=== PATIENT | male | born 1980 | race Asian ===

== ENCOUNTER 2017-09-26 16:48 | Emergency (ER) | payer MEDICAID ==
[~2017-09-26] VITALS: Ht 165.1 cm; Wt 77.6 kg
[~2017-09-26 16:48] MED LIST: ASPI-621 PO; CARV3.122 PO; FURO-92 PO; LEVO750T26 PO; LISI5TAB7 PO; METR500T PO; PANT40TA5 PO; PRED20TA PO; SPIR25TA3 PO
[2017-09-26 16:49] VITALS: BP 148/97
[2017-09-26] MEDS ORDERED: ASPIRIN 81 MG TABLET CHEW PO ONE (17:00)
[2017-09-26] MEDS ORDERED: SODIUM CHLORIDE 0.9% 1,000ML IVBOLUS ONE (17:00)
[2017-09-26] MEDS ORDERED: SODIUM CHLORIDE FLUSH 10ML SYR IVF ONE (17:00)
== END 2017-09-26 18:24 | disposition left against medical advice (07) ==
LOC: ED 18:18
DX: M25.562 Pain in left knee (principal); R07.9 Chest pain, unspecified; I42.9 Cardiomyopathy, unspecified
CPT/HCPCS: 71046; 93005; 99284

== ENCOUNTER 2018-11-24 19:46 | Inpatient (IN) | payer MEDICAID ==
[~2018-11-24] VITALS: Ht 165.1 cm; Wt 83.3 kg
[~2018-11-24 19:46] MED LIST changes: -ASPI-621 PO; +ASPI81TA45 PO; +CARV6.252 PO; -SPIR25TA3 PO; +SPIR25TA5 PO
[2018-11-24] MEDS ORDERED: ACETAMINOPHEN 325 MG TABLET PO ONE (20:00)
[2018-11-24] MEDS ORDERED: ACETAMINOPHEN 325 MG TABLET ONE (20:02)
--- NOTE | 2018-11-24 20:06 | NUR ---
PT. TO ED WITH C/O COUGH FOR A FEW DAYS. PT. WAS ADMITTED TO HOSPITAL A COUPLE DAYS AGO AND HAD TO LEAVE AMA FOR HIS CHILDREN. PT. HERE "TO BE ADMITTED AGAIN". PT. SPEAKING IN FULL SENTENCES. DR. HINOJOSA AT TO EVAL PT. AND DISCUSS POC. EKG WAS DONE IN TRIAGE. CHEST X-RAY DONE. CALL LIGHT IN REACH. ALL MONITORS IN PLACE.
[2018-11-24 20:39] LABS: MEAN CORPUSCULAR HGB CONC 32.7 g/dL (33.2-36.2); MEAN CORPUSCULAR VOLUME 85.7 fL (81-97); PLATELET COUNT 357 x10^3/uL (130-400); RED BLOOD COUNT 4.49 x10^6/uL (4.38-5.82); RED CELL DISTRIBUTION WIDTH 14.3 % (9.4-14.8)
[2018-11-24 20:48] LABS: ALBUMIN 3.5 g/dL (3.4-5.0); ANION GAP 9 mmol/L (5-15); CALCIUM 8.7 mg/dL (8.5-10.1); CHLORIDE 108 mmol/L (98-107); CREATININE 1.49 mg/dL (0.7-1.3)
[2018-11-24 20:51] LABS: TROPONIN I 0.071 ng/mL (0.000-0.045)
[2018-11-24 20:53] LABS: BASOPHILS # (AUTO) 0.05 x10^3/uL (0-0.1); BASOPHILS % (AUTO) 0 % (0-1); EOSINOPHILS # (AUTO) 0.03 x10^3/uL (0-0.4); EOSINOPHILS % (AUTO) 0 % (1-7); LYMPHOCYTES # (AUTO) 2.59 x10^3/uL (1-3.4); LYMPHOCYTES % (AUTO) 24 % (22-44); MD SCAN; MONOCYTES # (AUTO) 0.71 x10^3/uL (0.2-0.8); MONOCYTES % (AUTO) 7 % (2-9); NEUTROPHILS # (AUTO) 7.29 x10^3/uL (1.8-6.8); NEUTROPHILS % (AUTO) 68 % (42-75)
[2018-11-24] MEDS ORDERED: AZITHROMYCIN 500 MG in SODIUM CHLORIDE 0.9% 250 ML IVPB ONE (21:00)
[2018-11-24] MEDS ORDERED: CEFTRIAXONE PMX 1GM/50ML 50 ML IVPB ONE (21:00)
[2018-11-24] MEDS ORDERED: CEFTRIAXONE PMX 1GM/50ML 50 ML ONE (21:16)
--- NOTE | 2018-11-24 21:26 | NUR ---
IV ABX INFUSING PER ORDER; 2 SETS OF BLOOD CULTURES WERE COMPLETED PRIOR. VS UPDATED. CALL LIGHT REMAINS IN REACH. PT. TO BE ADMIT; AWAITING ORDERS.
[2018-11-24] MEDS ORDERED: SODIUM CHLORIDE FLUSH 10ML SYR IVF PRN (22:00)
--- NOTE | 2018-11-24 22:10 | NUR ---
[facility] WAS IN TO EVAL PT. FOR ADMISSION. AWAITING BED PLACEMENT UPSTAIRS.
[2018-11-24] MEDS ORDERED: CARVEDILOL 3.125 MG TABLET ONE (22:38)
[2018-11-24] MEDS: CARVEDILOL 6.25 MG TABLET PO SCH (22:41)
--- NOTE | 2018-11-24 22:55 | NUR ---
Millie roche in ED - 11/24/18 at 2256 by ELISEO UPDATE GIVEN TO TELEPSYCH DOCTOR. MACHINE IN ROOM AND PHYSICIAN WILL BE CALLING TO SPEAK WITH PT.
[2018-11-24] MEDS ORDERED: CEFTRIAXONE PMX 1GM/50ML 50 ML IV ONE (23:00)
--- NOTE | 2018-11-24 23:13 | NUR ---
REPORT TO TOÑITO MARROQUIN FOR ROOM 514
[2018-11-24 23:16] LABS: HEMOGLOBIN A1C 6.6 % (4.2-6.3)
[2018-11-24] MEDS ORDERED: DIPHENHYDRAMINE 25 MG CAPSULE PO PRN (23:30)
[2018-11-24] MEDS ORDERED: hydrALAzine 20 MG/ML, 1ML IVPush PRN (23:30)
[2018-11-24] MEDS ORDERED: ACETAMINOPHEN 325 MG TABLET PO PRN (23:30)
[2018-11-24] MEDS ORDERED: BISACODYL 10 MG SUPP PR PRN (23:30)
[2018-11-24] MEDS ORDERED: LIDODERM 5% PATCH TD PRN (23:30)
[2018-11-24 23:43] VITALS: BP 112/82
[2018-11-25] MEDS ORDERED: LORazepam 2 MG/ML, 1ML IVPush PRN (00:30)
[2018-11-25] MEDS: ONDANSETRON 2MG/ML, 2ML IVPush PRN ×2 (00:51→21:36)
[2018-11-25 01:26] LABS: AMPHETAMINE SCREEN, URINE Positive (Negative); BARBITURATE SCREEN, URINE Negative (Negative); BENZODIAZEPINE SCREEN, URINE Negative (Negative); CANNABINOID SCREEN, URINE Negative (Negative); COCAINE SCREEN, URINE Negative (Negative); METHADONE SCREEN, URINE Negative (Negative); OPIATE SCREEN, URINE Negative (Negative)
[2018-11-25 02:44] LABS: BASOPHILS % (AUTO) 1 % (0-1); EOSINOPHILS % (AUTO) 0 % (1-7); LYMPHOCYTES # (AUTO) 1.19 x10^3/uL (1-3.4); LYMPHOCYTES % (AUTO) 12 % (22-44); MD NO; MEAN CORPUSCULAR VOLUME 85.3 fL (81-97); MEAN PLATELET VOLUME 7.5 fL (7.4-10.4); MONOCYTES # (AUTO) 0.68 x10^3/uL (0.2-0.8); MONOCYTES % (AUTO) 7 % (2-9); NEUTROPHILS # (AUTO) 7.69 x10^3/uL (1.8-6.8); NEUTROPHILS % (AUTO) 80 % (42-75); PLATELET COUNT 283 x10^3/uL (130-400); RED BLOOD COUNT 4.47 x10^6/uL (4.38-5.82); RED CELL DISTRIBUTION WIDTH 14.6 % (9.4-14.8)
[2018-11-25 02:52] LABS: ANION GAP 10 mmol/L (5-15); CHLORIDE 109 mmol/L (98-107); CREATININE 1.47 mg/dL (0.7-1.3)
[2018-11-25 02:56] LABS: TROPONIN I 0.094 ng/mL (0.000-0.045)
[2018-11-25 03:17] VITALS: BP 108/68
[2018-11-25] MEDS: HEPARIN 5,000 UNITS/ML, 1ML SQ SCH ×3 (06:33→21:07)
[2018-11-25 08:09] VITALS: BP 121/88
[2018-11-25 08:36] LABS: TROPONIN I 0.145 ng/mL (0.000-0.045)
[2018-11-25] MEDS ORDERED: FUROSEMIDE 40 MG TABLET PO SCH (09:00)
[2018-11-25] MEDS: CARVEDILOL 6.25 MG TABLET PO SCH ×2 (09:59→20:33)
[2018-11-25] MEDS: LISINOPRIL 5 MG TABLET PO SCH (09:59)
[2018-11-25] MEDS ORDERED: SODIUM CHLORIDE 0.9% 1,000 ML IV SCH (13:00)
[2018-11-25 14:04] VITALS: BP 101/71
[2018-11-25 14:08] LABS: TROPONIN I 0.138 ng/mL (0.000-0.045)
[2018-11-25 18:24] VITALS: BP 119/81
[2018-11-25 20:33] VITALS: BP 102/68
[2018-11-25] MEDS: CEFTRIAXONE PMX 2GM/50ML 50 ML IV SCH (20:33)
[2018-11-25] MEDS: AZITHROMYCIN 500 MG in SODIUM CHLORIDE 0.9% 250 ML IV SCH (21:08)
[2018-11-25] MEDS: LORazepam 1MG TABLET PO PRN (22:19)
[2018-11-26 02:46] VITALS: BP_SYST 106; BP_SYST 99; BP_DIAS 57; BP_DIAS 70
[2018-11-26] MEDS: HEPARIN 5,000 UNITS/ML, 1ML SQ SCH ×3 (05:52→20:49)
[2018-11-26 06:51] VITALS: BP 122/86
[2018-11-26] MEDS: CARVEDILOL 6.25 MG TABLET PO SCH ×2 (09:07→20:48)
[2018-11-26] MEDS: LISINOPRIL 5 MG TABLET PO SCH (09:07)
[2018-11-26 13:30] VITALS: BP 126/79
[2018-11-26 18:53] VITALS: BP 120/75
[2018-11-26] MEDS: CEFTRIAXONE PMX 2GM/50ML 50 ML IV SCH (20:47)
[2018-11-26] MEDS: AZITHROMYCIN 500 MG in SODIUM CHLORIDE 0.9% 250 ML IV SCH (20:48)
[2018-11-26] MEDS: ATORVASTATIN 40 MG TABLET PO SCH (21:08)
[2018-11-26 21:46] LABS: CHOL/HDL RATIO 4.1; LDL/HDL RATIO 2.6 (0.5-3.0)
[2018-11-26] MEDS: LORazepam 1MG TABLET PO PRN (23:17)
[2018-11-26 23:55] VITALS: BP 70/54
[2018-11-27] VITALS (7 sets, daily range): BP systolic 85–110; BP diastolic 56–75
[2018-11-27] MEDS ORDERED: SODIUM CHLORIDE 0.9% 1,000ML IVBOLUS ONE ×2 (00:30→01:00)
[2018-11-27] MEDS: SODIUM CHLORIDE 0.9% 1,000 ML IV SCH ×2 (02:53→09:40)
[2018-11-27] MEDS: ONDANSETRON 2MG/ML, 2ML IVPush PRN (02:53)
[2018-11-27] MEDS ORDERED: ASPIRIN 81 MG TABLET EC PO SCH (06:00)
[2018-11-27] MEDS: HEPARIN 5,000 UNITS/ML, 1ML SQ SCH ×3 (07:15→21:21)
[2018-11-27 07:56] LABS: TROPONIN I 0.257 ng/mL (0.000-0.045)
[2018-11-27] MEDS: CARVEDILOL 6.25 MG TABLET PO SCH ×2 (09:00→21:16)
[2018-11-27] MEDS: LISINOPRIL 5 MG TABLET PO SCH (09:00)
[2018-11-27 10:30] LABS: TROPONIN I 0.235 ng/mL (0.000-0.045)
[2018-11-27] MEDS: AZITHROMYCIN 500 MG in SODIUM CHLORIDE 0.9% 250 ML IV SCH (21:00)
[2018-11-27] MEDS: ATORVASTATIN 40 MG TABLET PO SCH (21:16)
[2018-11-27] MEDS: CEFTRIAXONE PMX 2GM/50ML 50 ML IV SCH (21:20)
[2018-11-28 00:49] VITALS: BP 104/71
[2018-11-28] MEDS: HEPARIN 5,000 UNITS/ML, 1ML SQ SCH (03:17)
== END 2018-11-28 03:58 | disposition left against medical advice (07) | DRG 871 ==
LOC: ED 20:46 → EDIP 21:33 → 5SO 23:38 → CCU 11-26 17:55 → 5SO 11-26 17:56
PROVIDERS: ADMIT Internal Medicine; ATTEND Internal Medicine
DX: A41.9 Sepsis, unspecified organism (principal); J15.9 Unspecified bacterial pneumonia; I13.0 Hypertensive heart and chronic kidney disease with heart failure and stage 1 through stage 4 chronic kidney disease, or unspecified chronic kidney disease; I24.8 Other forms of acute ischemic heart disease; I42.7 Cardiomyopathy due to drug and external agent; E11.22 Type 2 diabetes mellitus with diabetic chronic kidney disease; E11.65 Type 2 diabetes mellitus with hyperglycemia; F12.90 Cannabis use, unspecified, uncomplicated; F15.10 Other stimulant abuse, uncomplicated; F17.210 Nicotine dependence, cigarettes, uncomplicated; F41.9 Anxiety disorder, unspecified; I25.10 Atherosclerotic heart disease of native coronary artery without angina pectoris; I50.9 Heart failure, unspecified; K21.9 Gastro-esophageal reflux disease without esophagitis; N18.2 Chronic kidney disease, stage 2 (mild); T43.625A Adverse effect of amphetamines, initial encounter; Y92.89 Other specified places as the place of occurrence of the external cause; I25.2 Old myocardial infarction; Z87.11 Personal history of peptic ulcer disease; Z91.19 Patient's noncompliance with other medical treatment and regimen; Z71.51 Drug abuse counseling and surveillance of drug abuser
CPT/HCPCS: 36415; 71045; 80048; 80061; 80307; 82040; 83036; 83605; 83880; 84145; 84484; 85025; 87040; 93005; 96365; 96366; G0378; J0456; J0696; J1644; J2405; J7030; J7050

== ENCOUNTER 2019-02-20 04:58 | Inpatient (IN) | payer MEDICAID ==
[~2019-02-20] VITALS: Ht 165.1 cm; Wt 74.0 kg
[2019-02-20] MEDS ORDERED: NITROGLYCERIN SINGLE TAB 0.4 MG SL ONE (05:27)
[2019-02-20] MEDS ORDERED: ASPIRIN 81 MG TABLET CHEW ONE (05:27)
[2019-02-20] MEDS ORDERED: ASPIRIN 81 MG TABLET CHEW PO ONE (05:30)
[2019-02-20] MEDS ORDERED: SODIUM CHLORIDE FLUSH 10ML SYR IVF ONE (05:30)
[2019-02-20] MEDS: NITROGLYCERIN SINGLE TAB 0.4 MG SL PRN ×2 (05:35→05:41)
--- NOTE | 2019-02-20 05:35 | NUR ---
Pt placed on monitor, vss, NSR on monitor, c/o 6/10 subternal chest pain sharp/ pressure, denies SOB.SL nitro given, ASA given per MD orders, education provided. Family at bedside.
--- NOTE | 2019-02-20 05:42 | NUR ---
Pain not relieved with nitro 1st dose, repeated per MD orders. SBP 131/95, pain 6/10.
[2019-02-20 05:58] LABS: BASOPHILS % (AUTO) 2 % (0-1); EOSINOPHILS # (AUTO) 0.05 x10^3/uL (0-0.4); EOSINOPHILS % (AUTO) 1 % (1-7); LYMPHOCYTES % (AUTO) 25 % (22-44); MD NO; MEAN CORPUSCULAR HEMOGLOBIN 28.6 pg (27.5-34.5); MEAN CORPUSCULAR HGB CONC 32.5 g/dL (33.2-36.2); MEAN CORPUSCULAR VOLUME 88.1 fL (81-97); MEAN PLATELET VOLUME 7.7 fL (7.4-10.4); MONOCYTES # (AUTO) 0.79 x10^3/uL (0.2-0.8); MONOCYTES % (AUTO) 7 % (2-9); NEUTROPHILS # (AUTO) 7.34 x10^3/uL (1.8-6.8); NEUTROPHILS % (AUTO) 66 % (42-75); PLATELET COUNT 315 x10^3/uL (130-400); RED BLOOD COUNT 4.87 x10^6/uL (4.38-5.82); RED CELL DISTRIBUTION WIDTH 17.1 % (9.4-14.8)
[2019-02-20 06:04] LABS: INTERNATIONAL NORMALIZED RATIO 1.24 (0.93-1.1); PROTHROMBIN TIME 12.9 Seconds (9.6-11.5)
[2019-02-20 06:05] LABS: ALANINE AMINOTRANSFERASE 31 U/L (12-78); ALBUMIN 3.7 g/dL (3.4-5.0); ANION GAP 9 mmol/L (5-15); CALCIUM 8.6 mg/dL (8.5-10.1); CHLORIDE 108 mmol/L (98-107); CREATININE 1.46 mg/dL (0.7-1.3)
[2019-02-20 06:09] LABS: ALKALINE PHOSPHATASE 84 U/L (45-117); BILIRUBIN,TOTAL 0.8 mg/dL (0.2-1.0); TOTAL PROTEIN 8.2 g/dL (6.4-8.2); TROPONIN I 0.059 ng/mL (0.000-0.045)
--- NOTE | 2019-02-20 06:50 | NUR ---
PIV placed, taken to CT, report given to oncoming RN.
--- NOTE | 2019-02-20 06:51 | NUR ---
SBAR HAND-OFF REPORT RECEIVED FROM LOPEZ DAWSON. ASSUMING CARE OF PATIENT.
--- NOTE | 2019-02-20 06:51 | NUR ---
PT IN CT AT THIS TIME.
[2019-02-20] MEDS ORDERED: OMNIPAQUE 350 MG/ML, 100ML BOTTLE ONE (07:00)
[2019-02-20] MEDS ORDERED: ONDANSETRON 2MG/ML, 2ML ONE (07:15)
--- NOTE | 2019-02-20 07:18 | NUR ---
PT WAS C/O NAUSEA. DR. VYAS NOTIFIED. ZOFRAN ORDERED AND GIVEN.
[2019-02-20] MEDS ORDERED: SPIR25TA5 PO (07:30)
[2019-02-20] MEDS ORDERED: ONDANSETRON 2MG/ML, 2ML IVPush ONE (07:30)
--- NOTE | 2019-02-20 09:19 | NUR ---
PT RESTING WITH NO COMPLAINTS. UPDATED PATIENT ON PLAN OF CARE.
[2019-02-20] MEDS ORDERED: SODIUM CHLORIDE FLUSH 10ML SYR IVF PRN (09:30)
[2019-02-20] MEDS ORDERED: IBUPROFEN 200 MG TABLET ONE (10:05)
[2019-02-20] MEDS ORDERED: IBUPROFEN 600 MG TABLET PO ONE (10:30)
--- NOTE | 2019-02-20 10:43 | NUR ---
SBAR TELEPHONE HAND-OFF REPORT GIVEN TO LOPEZ DEL ANGEL ON TELE.
[2019-02-20 11:23] VITALS: BP 131/92
[2019-02-20] MEDS ORDERED: hydrALAzine 20 MG/ML, 1ML IVPush PRN (11:30)
[2019-02-20] MEDS ORDERED: CYCLOBENZAPRINE 10 MG TABLET PO PRN (11:30)
[2019-02-20] MEDS ORDERED: ACETAMINOPHEN 325 MG TABLET PO PRN (11:30)
[2019-02-20] MEDS ORDERED: ONDANSETRON 2MG/ML, 2ML IVPush PRN (11:30)
[2019-02-20] MEDS ORDERED: OXYcodone IR 5MG TABLET PO PRN (11:30)
[2019-02-20 12:43] LABS: TROPONIN I 0.049 ng/mL (0.000-0.045)
[2019-02-20] MEDS: POTASSIUM CHLORIDE 20 MEQ TAB.ER.PRT PO SCH ×2 (12:47→17:39)
[2019-02-20] MEDS: ENOXAPARIN 40 MG/0.4 ML SQ SCH (12:48)
[2019-02-20] MEDS: LISINOPRIL 5 MG TABLET PO SCH (12:48)
[2019-02-20] MEDS: SPIRONOLACTONE 25 MG TABLET PO SCH (12:48)
[2019-02-20] MEDS: CARVEDILOL 6.25 MG TABLET PO SCH ×2 (12:48→20:45)
[2019-02-20 13:30] VITALS: BP 128/96
[2019-02-20] MEDS: FUROSEMIDE 40 MG/4 ML IV SCH (17:39)
[2019-02-20 18:03] LABS: TROPONIN I 0.028 ng/mL (0.000-0.045)
[2019-02-20 18:59] VITALS: BP 116/90
[2019-02-20 20:02] LABS: MICROSCOPIC NOT IND
[2019-02-20] MEDS ORDERED: NITROGLYCERIN 0.4 MG/SPRAY SL PRN (22:30)
[2019-02-20] MEDS ORDERED: NITROGLYCERIN 0.4 MG BOTTLE (25 TABS) SL PRN (22:30)
[2019-02-21] VITALS (7 sets, daily range): BP systolic 105–123; BP diastolic 44–88
[2019-02-21 06:00] LABS: CHLORIDE 107 mmol/L (98-107)
[2019-02-21 06:04] LABS: ANION GAP 9 mmol/L (5-15); CALCIUM 8.1 mg/dL (8.5-10.1); CHOL/HDL RATIO 6.5; CHOLESTEROL, TOTAL 142 mg/dL (140-239); CREATININE 1.66 mg/dL (0.7-1.3); HDL CHOL % 15 % (26-37); HDL CHOLESTEROL (DIRECT) 22 mg/dL (40-60); LDL CHOLESTEROL,CALCULATED 78 mg/dL (54-169); LDL/HDL RATIO 3.5 (0.5-3.0); TRIGLYCERIDES 211 mg/dL (50-200); VLDL CHOLESTEROL 42 mg/dL (0-25)
[2019-02-21 06:05] LABS: BASOPHILS # (AUTO) 0.05 x10^3/uL (0-0.1); BASOPHILS % (AUTO) 1 % (0-1); EOSINOPHILS # (AUTO) 0.07 x10^3/uL (0-0.4); EOSINOPHILS % (AUTO) 1 % (1-7); LYMPHOCYTES # (AUTO) 3.59 x10^3/uL (1-3.4); LYMPHOCYTES % (AUTO) 35 % (22-44); MD NO; MEAN CORPUSCULAR HEMOGLOBIN 27.9 pg (27.5-34.5); MEAN PLATELET VOLUME 7.6 fL (7.4-10.4); MONOCYTES # (AUTO) 0.93 x10^3/uL (0.2-0.8); MONOCYTES % (AUTO) 9 % (2-9); NEUTROPHILS # (AUTO) 5.52 x10^3/uL (1.8-6.8); NEUTROPHILS % (AUTO) 54 % (42-75); PLATELET COUNT 255 x10^3/uL (130-400); RED BLOOD COUNT 4.33 x10^6/uL (4.38-5.82); RED CELL DISTRIBUTION WIDTH 16.9 % (9.4-14.8)
[2019-02-21] MEDS: SPIRONOLACTONE 25 MG TABLET PO SCH (09:28)
[2019-02-21] MEDS: CARVEDILOL 6.25 MG TABLET PO SCH ×2 (09:28→20:37)
[2019-02-21] MEDS: FUROSEMIDE 40 MG/4 ML IV SCH ×2 (09:29→17:11)
[2019-02-21] MEDS: LISINOPRIL 5 MG TABLET PO SCH (09:29)
[2019-02-21] MEDS: ENOXAPARIN 40 MG/0.4 ML SQ SCH (13:48)
[2019-02-22 02:37] VITALS: BP 108/65
[2019-02-22 06:35] VITALS: BP 122/90
[2019-02-22] MEDS: SPIRONOLACTONE 25 MG TABLET PO SCH (08:32)
[2019-02-22] MEDS: LISINOPRIL 5 MG TABLET PO SCH (08:33)
[2019-02-22] MEDS: CARVEDILOL 6.25 MG TABLET PO SCH (08:33)
[2019-02-22 10:27] LABS: ANION GAP 12 mmol/L (5-15); CALCIUM 8.6 mg/dL (8.5-10.1); CHLORIDE 103 mmol/L (98-107); CREATININE 1.61 mg/dL (0.7-1.3)
[2019-02-22] MEDS ORDERED: FUROSEMIDE 40 MG TABLET PO SCH (11:00)
[2019-02-22 12:01] VITALS: BP 108/74
[2019-02-22] MEDS: ENOXAPARIN 40 MG/0.4 ML SQ SCH (12:25)
[2019-02-22] MEDS ORDERED: NITR0.4T28 SL (13:31)
== END 2019-02-22 15:17 | disposition home health service (06) | DRG 292 ==
LOC: ED 05:50 → EDIP 09:03 → 5SO 10:54
PROVIDERS: ADMIT Family Medicine; ATTEND Family Medicine
DX: I11.0 Hypertensive heart disease with heart failure (principal); I24.8 Other forms of acute ischemic heart disease; E87.6 Hypokalemia; I50.23 Acute on chronic systolic (congestive) heart failure; I42.9 Cardiomyopathy, unspecified; F15.90 Other stimulant use, unspecified, uncomplicated; F12.90 Cannabis use, unspecified, uncomplicated; I25.10 Atherosclerotic heart disease of native coronary artery without angina pectoris; K21.9 Gastro-esophageal reflux disease without esophagitis; Z86.711 Personal history of pulmonary embolism; Z87.11 Personal history of peptic ulcer disease; Z87.891 Personal history of nicotine dependence
CPT/HCPCS: 36415; 71045; 71275; 80048; 80053; 80061; 81003; 83735; 83880; 84484; 85025; 85610; 85730; 93005; 96374; 99285; G0378; J1650; J1940; J2405; Q9967

== ENCOUNTER 2019-10-25 02:02 | Emergency (ER) | payer MEDICAID ==
[~2019-10-25] VITALS: Ht 162.6 cm; Wt 77.0 kg
[~2019-10-25 02:02] MED LIST changes: +NITR0.4T28 SL
[2019-10-25] MEDS ORDERED: SODIUM CHLORIDE FLUSH 10ML SYR IVF ONE (02:30)
[2019-10-25] MEDS ORDERED: MAALOX/HYOSCYAMINE/LIDOCAINE 45 ML BTL PO ONE (02:30)
[2019-10-25] MEDS ORDERED: ONDANSETRON 2MG/ML, 2ML IVPush ONE (02:30)
[2019-10-25] MEDS ORDERED: MAALOX/HYOSCYAMINE/LIDOCAINE 45 ML BTL ONE (02:55)
[2019-10-25 03:18] LABS: MICROSCOPIC INDICATED
[2019-10-25 03:18] LABS: ALANINE AMINOTRANSFERASE 55 U/L (12-78); ALBUMIN 3.7 g/dL (3.4-5.0); ANION GAP 9 mmol/L (5-15); CALCIUM 9.6 mg/dL (8.5-10.1); CHLORIDE 106 mmol/L (98-107); CREATININE 1.36 mg/dL (0.7-1.3)
[2019-10-25 03:19] LABS: BASOPHILS # (AUTO) 0.04 x10^3/uL (0-0.1); BASOPHILS % (AUTO) 0 % (0-1); EOSINOPHILS # (AUTO) 0.12 x10^3/uL (0-0.4); EOSINOPHILS % (AUTO) 1 % (1-7); LYMPHOCYTES # (AUTO) 1.71 x10^3/uL (1-3.4); LYMPHOCYTES % (AUTO) 15 % (22-44); MD NO; MEAN CORPUSCULAR HEMOGLOBIN 27.1 pg (27.5-34.5); MEAN CORPUSCULAR HGB CONC 32.5 g/dL (33.2-36.2); MEAN CORPUSCULAR VOLUME 83.5 fL (81-97); MEAN PLATELET VOLUME 7.8 fL (7.4-10.4); MONOCYTES # (AUTO) 0.25 x10^3/uL (0.2-0.8); MONOCYTES % (AUTO) 2 % (2-9); NEUTROPHILS # (AUTO) 9.57 x10^3/uL (1.8-6.8); NEUTROPHILS % (AUTO) 82 % (42-75); PLATELET COUNT 367 x10^3/uL (130-400); RED BLOOD COUNT 5.79 x10^6/uL (4.38-5.82); RED CELL DISTRIBUTION WIDTH 15.6 % (9.4-14.8)
[2019-10-25 03:20] LABS: ALKALINE PHOSPHATASE 99 U/L (45-117); BILIRUBIN,TOTAL 0.2 mg/dL (0.2-1.0); TOTAL PROTEIN 9.3 g/dL (6.4-8.2)
[2019-10-25 03:31] LABS: CULTURE INDICATED? NO
[2019-10-25 03:50] VITALS: BP 152/95
== END 2019-10-25 04:10 | disposition home or self-care (01) ==
LOC: ED 04:00
DX: K29.00 Acute gastritis without bleeding (principal); R10.13 Epigastric pain; I11.0 Hypertensive heart disease with heart failure; I50.9 Heart failure, unspecified
CPT/HCPCS: 36415; 80053; 81001; 83690; 85025; 93005; 99284

== ENCOUNTER 2020-06-04 05:49 | Inpatient (IN) | payer MEDICAID ==
[~2020-06-04] VITALS: Ht 165.1 cm; Wt 78.9 kg
[~2020-06-04 05:49] MED LIST changes: -PANT40TA5 PO; +PANT40TA6 PO
--- NOTE | 2020-06-04 05:57 | NUR ---
PT CURRENTLY BEING TREATED FOR BRONCHITIS WITH AMOX HE BELIEVES AND PREDNISONE, TAKES LABETOLOL AND LISINOPRIL, SPIRONOLACTONE DAILY. FELT DIZZY THIS AM AND LIKE HE WAS GOING TO PASS OUT. 12 LEAD OBTAINED UPON ARRIVAL, SPO2 100% RA IN TRIAGE.
--- NOTE | 2020-06-04 08:05 | NUR ---
early childhood specialist: PT WALKED BACK FROM LOBBY TO ROOM AT THIS TIME.
[2020-06-04 08:10] LABS: BASOPHILS % (AUTO) 1 % (0-1); EOSINOPHILS % (AUTO) 0 % (1-7); LYMPHOCYTES % (AUTO) 19 % (22-44); MEAN CORPUSCULAR HEMOGLOBIN 28.3 pg (27.5-34.5); MEAN CORPUSCULAR HGB CONC 32.6 g/dL (33.2-36.2); MEAN PLATELET VOLUME 7.8 fL (7.4-10.4); MONOCYTES % (AUTO) 6 % (2-9); NEUTROPHILS % (AUTO) 74 % (42-75); PLATELET COUNT 347 x10^3/uL (130-400); RED BLOOD COUNT 4.87 x10^6/uL (4.38-5.82); RED CELL DISTRIBUTION WIDTH 14.4 % (9.4-14.8)
[2020-06-04 08:17] LABS: MD NO
--- NOTE | 2020-06-04 08:21 | NUR ---
FIRST CONTACT. PT.'S BGL WAS CHECKED. OGI=823. PT. WAS PLACED ON THE WIRE ROPE SLING MAKER. IV ACCESS ESTABLISHED. PT. DENIES HX OF DM. STATES HIS HX IS CHF, SEPSIS, HTN AND AL. PT. REMAINS A & O X 4 WITH A GCS OF 15. PT. IS PINK, WARM AND DRY WITH CAP REFILL LESS THAN 3 SECONDS. LUNGS ARE CTA THROUGHOUT. PULSES ARE +2 WITH NO EDEMA NOTED IN THE PT.'S EXTREMITIES. PT.'S ABD. IS SOFT AND ROUND WITH BS + X 4 QUADS. PT. REPORTS DIZZINESS AND FREQUENT URINATION. PT. STATES HE IS ALWAYS THIRSTY. PT.'S HOB IS ELEVATED GREATER THAN 30 DEGREES AND HE HAS BLANKETS IN PLACE FOR WARMTH. SIDERAILS REMAIN UP X 2 WITH THE CALL LIGHT IN PLACE.
[2020-06-04 08:22] LABS: ALBUMIN 3.5 g/dL (3.4-5.0); ANION GAP 10 mmol/L (5-15); CALCIUM 8.5 mg/dL (8.5-10.1); CHLORIDE 102 mmol/L (98-107)
[2020-06-04] MEDS ORDERED: LORazepam 1MG TABLET PO ONE (08:30)
[2020-06-04] MEDS ORDERED: ONDANSETRON ODT 4 MG PO ONE (08:30)
[2020-06-04] MEDS ORDERED: SODIUM CHLORIDE 0.9% 1,000ML IVBOLUS ONE (08:30)
[2020-06-04 08:32] LABS: TROPONIN I 0.206 ng/mL (0.000-0.045)
[2020-06-04] MEDS ORDERED: ONDANSETRON ODT 4 MG ONE (08:34)
[2020-06-04] MEDS ORDERED: ASPIRIN 81 MG TABLET CHEW ONE (08:34)
--- NOTE | 2020-06-04 08:49 | NUR ---
MD MORGAN AT THE BEDSIDE AND AWARE OF PT.'S CRITICAL TROP LEVEL OF 0.2 WELL BGL. PT. REMAINS MONITORED AND DENIES CHEST PAIN. HE DENIES DIZZINESS AT THIS TIME. CHARLES MALDONADO INSTRUCTED RN TO NOT START A SECOND IV AT THIS TIME. PT.'S NS BOLUS IS INFUSING. VSS. PT.'S HOB REMAINS ELEVATED. PT. IS AWARE THAT A UA IS NEEDED. URINAL AT THE BEDSIDE.
[2020-06-04] MEDS ORDERED: ASPIRIN 81 MG TABLET CHEW PO ONE (09:00)
--- NOTE | 2020-06-04 09:05 | NUR ---
URINE TAKEN TO THE LAB.
[2020-06-04 09:50] LABS: MICROSCOPIC AUTO
[2020-06-04 10:00] LABS: AMPHETAMINE SCREEN, URINE Positive (Negative); BARBITURATE SCREEN, URINE Negative (Negative); BENZODIAZEPINE SCREEN, URINE Negative (Negative); CANNABINOID SCREEN, URINE Positive (Negative); COCAINE SCREEN, URINE Negative (Negative); METHADONE SCREEN, URINE Negative (Negative); OPIATE SCREEN, URINE Negative (Negative)
--- NOTE | 2020-06-04 10:47 | NUR ---
NO CHANGES AT THIS TIME. PT. REMAINS MONITORED WITH STABLE VSS.
--- NOTE | 2020-06-04 11:39 | NUR ---
PT. REMAINS MONITORED. VSS. NS BOLUS IS COMPLETE. PT. HAS NO CONCERNS AT THIS TIME.
--- NOTE | 2020-06-04 12:54 | NUR ---
REPORT GIVEN TO ROSSANA RN. PT. IS READY FOR TRANSPORT TO ROOM 506.
[2020-06-04 13:19] VITALS: BP 101/71
[2020-06-04] MEDS ORDERED: ONDANSETRON 2MG/ML, 2ML IVPush PRN (15:30)
[2020-06-04] MEDS: ENOXAPARIN 40 MG/0.4 ML SQ SCH (15:30)
[2020-06-04] MEDS ORDERED: NITROGLYCERIN SINGLE TAB 0.4 MG SL PRN (15:30)
[2020-06-04] MEDS ORDERED: LORazepam 1MG TABLET PO PRN (15:30)
[2020-06-04] MEDS ORDERED: PHARMACY MAY ADJ FOR RENAL FX MC PRN (15:30)
[2020-06-04 16:01] LABS: TROPONIN I 0.143 ng/mL (0.000-0.045)
[2020-06-04] MEDS: INSULIN LISPRO 100 UNITS/ML, PEN SQ-INSULIN SCH ×2 (17:44→20:32)
[2020-06-04 17:51] LABS: MICROSCOPIC INDICATED
[2020-06-04] MEDS: AMOXICILLIN/CLAV 875-125MG TABLET PO SCH (20:28)
[2020-06-04] MEDS: CARVEDILOL 6.25 MG TABLET PO SCH (20:28)
[2020-06-04 20:33] VITALS: BP 106/74
[2020-06-05 01:41] VITALS: BP 127/83
[2020-06-05 05:04] LABS: BASOPHILS % (AUTO) 1 % (0-1); EOSINOPHILS % (AUTO) 0 % (1-7); LYMPHOCYTES % (AUTO) 28 % (22-44); MEAN CORPUSCULAR HEMOGLOBIN 28.6 pg (27.5-34.5); MEAN CORPUSCULAR HGB CONC 32.5 g/dL (33.2-36.2); MEAN PLATELET VOLUME 8.1 fL (7.4-10.4); MONOCYTES % (AUTO) 7 % (2-9); NEUTROPHILS % (AUTO) 64 % (42-75); PLATELET COUNT 312 x10^3/uL (130-400); RED BLOOD COUNT 4.63 x10^6/uL (4.38-5.82); RED CELL DISTRIBUTION WIDTH 14.4 % (9.4-14.8)
[2020-06-05 05:10] LABS: ANION GAP 6 mmol/L (5-15); CALCIUM 8.2 mg/dL (8.5-10.1); CHLORIDE 107 mmol/L (98-107)
[2020-06-05 05:20] LABS: MD NO
[2020-06-05 05:21] LABS: CREATININE 1.69 mg/dL (0.7-1.3)
[2020-06-05 07:23] VITALS: BP 138/97
[2020-06-05] MEDS ORDERED: FLU VACC QS2020-21(6MOS UP)/PF 60MCG/0.5 ML SYR IM-VACC ONE (08:00)
[2020-06-05] MEDS: INSULIN LISPRO 100 UNITS/ML, PEN SQ-INSULIN SCH ×4 (08:22→19:53)
[2020-06-05] MEDS: CARVEDILOL 6.25 MG TABLET PO SCH ×3 (08:22→19:54)
[2020-06-05] MEDS: FUROSEMIDE 40 MG TABLET PO SCH (08:23)
[2020-06-05] MEDS: SPIRONOLACTONE 25 MG TABLET PO SCH (08:23)
[2020-06-05] MEDS: LISINOPRIL 5 MG TABLET PO SCH (08:23)
[2020-06-05] MEDS: AMOXICILLIN/CLAV 875-125MG TABLET PO SCH ×2 (08:23→19:53)
[2020-06-05 13:25] VITALS: BP 130/93
[2020-06-05] MEDS: ENOXAPARIN 40 MG/0.4 ML SQ SCH (15:30)
[2020-06-05 19:45] VITALS: BP 130/94
[2020-06-05 21:24] VITALS: BP 128/93
[2020-06-05] MEDS ORDERED: NITROGLYCERIN 0.4 MG BOTTLE (25 TABS) SL PRN (22:00)
[2020-06-05] MEDS ORDERED: NITROGLYCERIN 0.4 MG/SPRAY SL PRN (22:00)
[2020-06-05 23:31] VITALS: BP 113/80
[2020-06-06 05:23] LABS: BASOPHILS % (AUTO) 1 % (0-1); EOSINOPHILS % (AUTO) 1 % (1-7); LYMPHOCYTES % (AUTO) 22 % (22-44); MEAN CORPUSCULAR HEMOGLOBIN 28.4 pg (27.5-34.5); MEAN CORPUSCULAR HGB CONC 32.7 g/dL (33.2-36.2); MEAN PLATELET VOLUME 7.9 fL (7.4-10.4); MONOCYTES % (AUTO) 8 % (2-9); NEUTROPHILS % (AUTO) 69 % (42-75); PLATELET COUNT 363 x10^3/uL (130-400); RED BLOOD COUNT 5.53 x10^6/uL (4.38-5.82); RED CELL DISTRIBUTION WIDTH 14.8 % (9.4-14.8)
[2020-06-06 05:37] LABS: ALANINE AMINOTRANSFERASE 189 U/L (12-78); ALBUMIN 3.1 g/dL (3.4-5.0); ANION GAP 9 mmol/L (5-15); CHLORIDE 101 mmol/L (98-107); CREATININE 1.77 mg/dL (0.7-1.3)
[2020-06-06 05:39] LABS: ALKALINE PHOSPHATASE 188 U/L (45-117); BILIRUBIN,TOTAL 0.8 mg/dL (0.2-1.0); TOTAL PROTEIN 7.4 g/dL (6.4-8.2)
[2020-06-06 06:28] LABS: MD SCAN
[2020-06-06 07:29] VITALS: BP 107/73
[2020-06-06] MEDS ORDERED: REGADENOSON 0.4 MG/5 ML SYRINGE ONE (08:37)
[2020-06-06] MEDS: CARVEDILOL 6.25 MG TABLET PO SCH ×3 (08:53→22:03)
[2020-06-06] MEDS: INSULIN GLARGINE 100 UNITS/ML, PEN SQ-INSULIN SCH ×3 (09:00→22:00)
[2020-06-06] MEDS: AMOXICILLIN/CLAV 875-125MG TABLET PO SCH (10:16)
[2020-06-06] MEDS: SPIRONOLACTONE 25 MG TABLET PO SCH (10:17)
[2020-06-06] MEDS: LISINOPRIL 5 MG TABLET PO SCH (10:17)
[2020-06-06] MEDS: FUROSEMIDE 40 MG TABLET PO SCH (10:17)
[2020-06-06] MEDS: INSULIN LISPRO 100 UNITS/ML, PEN SQ-INSULIN SCH ×4 (10:22→21:00)
[2020-06-06 13:24] VITALS: BP 113/83
[2020-06-06] MEDS: ENOXAPARIN 40 MG/0.4 ML SQ SCH (15:30)
[2020-06-06] MEDS: CEFTRIAXONE PMX 2GM/50ML 50 ML IVPB SCH (16:52)
[2020-06-06] MEDS ORDERED: DOXYCYCLINE 100 MG in DEXTROSE 5% 250 ML IV SCH (17:00)
[2020-06-06 18:55] VITALS: BP 101/75
[2020-06-06] MEDS ORDERED: INSULIN LISPRO 100 UNITS/ML, PEN SQ-INSULIN ONE (22:00)
[2020-06-06 22:10] VITALS: BP 115/77
[2020-06-07 01:02] VITALS: BP 109/75
[2020-06-07] MEDS ORDERED: DOXYCYCLINE 100 MG in SODIUM CHLORIDE 0.9% 250 ML IV SCH (05:00)
[2020-06-07 07:05] VITALS: BP 108/75
[2020-06-07] MEDS: INSULIN LISPRO 100 UNITS/ML, PEN SQ-INSULIN SCH ×4 (07:51→20:41)
[2020-06-07] MEDS: INSULIN GLARGINE 100 UNITS/ML, PEN SQ-INSULIN SCH (07:52)
[2020-06-07] MEDS: SPIRONOLACTONE 25 MG TABLET PO SCH (07:53)
[2020-06-07] MEDS: CARVEDILOL 6.25 MG TABLET PO SCH ×2 (07:53→20:43)
[2020-06-07] MEDS: LISINOPRIL 5 MG TABLET PO SCH (07:53)
[2020-06-07] MEDS: FUROSEMIDE 40 MG TABLET PO SCH (07:53)
[2020-06-07 08:44] LABS: BASOPHILS % (AUTO) 1 % (0-1); EOSINOPHILS % (AUTO) 1 % (1-7); LYMPHOCYTES % (AUTO) 19 % (22-44); MEAN CORPUSCULAR HEMOGLOBIN 28.9 pg (27.5-34.5); MEAN CORPUSCULAR HGB CONC 32.7 g/dL (33.2-36.2); MEAN PLATELET VOLUME 7.8 fL (7.4-10.4); MONOCYTES % (AUTO) 9 % (2-9); NEUTROPHILS % (AUTO) 71 % (42-75); PLATELET COUNT 386 x10^3/uL (130-400); RED BLOOD COUNT 5.97 x10^6/uL (4.38-5.82); RED CELL DISTRIBUTION WIDTH 15.1 % (9.4-14.8)
[2020-06-07 08:46] LABS: ALANINE AMINOTRANSFERASE 165 U/L (12-78); ALBUMIN 3.2 g/dL (3.4-5.0); ANION GAP 5 mmol/L (5-15); CALCIUM 9.1 mg/dL (8.5-10.1); CHLORIDE 100 mmol/L (98-107); CREATININE 1.87 mg/dL (0.7-1.3)
[2020-06-07 08:48] LABS: ALKALINE PHOSPHATASE 168 U/L (45-117); BILIRUBIN,TOTAL 0.6 mg/dL (0.2-1.0); MD NO; TOTAL PROTEIN 8.1 g/dL (6.4-8.2)
[2020-06-07 14:30] VITALS: BP 92/64
[2020-06-07] MEDS: CEFTRIAXONE PMX 2GM/50ML 50 ML IVPB SCH (15:56)
[2020-06-07] MEDS: ENOXAPARIN 40 MG/0.4 ML SQ SCH (15:56)
[2020-06-07 19:14] VITALS: BP 106/72
[2020-06-07] MEDS ORDERED: INSULIN GLARGINE 100 UNITS/ML, PEN SQ-INSULIN SCH (21:00)
[2020-06-07] MEDS ORDERED: DOXYCYCLINE 100MG TABLET PO SCH (21:00)
[2020-06-08 02:00] VITALS: BP 104/69
[2020-06-08 07:38] VITALS: BP 116/74
[2020-06-08] MEDS ORDERED: CEFDINIR 300 MG CAPSULE PO SCH (09:00)
[2020-06-08] MEDS ORDERED: INSULIN GLARGINE 100 UNITS/ML, PEN SQ-INSULIN SCH (09:00)
== END 2020-06-08 08:21 | disposition left against medical advice (07) | DRG 194 ==
LOC: ED 10:00 → EDIP 11:38 → 5SO 13:14
PROVIDERS: ADMIT Hospitalist; ATTEND Hospitalist
DX: J18.1 Lobar pneumonia, unspecified organism (principal); I42.8 Other cardiomyopathies; I13.0 Hypertensive heart and chronic kidney disease with heart failure and stage 1 through stage 4 chronic kidney disease, or unspecified chronic kidney disease; E11.65 Type 2 diabetes mellitus with hyperglycemia; E11.22 Type 2 diabetes mellitus with diabetic chronic kidney disease; N18.9 Chronic kidney disease, unspecified; F41.9 Anxiety disorder, unspecified; F15.10 Other stimulant abuse, uncomplicated; I50.9 Heart failure, unspecified; F12.90 Cannabis use, unspecified, uncomplicated; Z53.29 Procedure and treatment not carried out because of patient's decision for other reasons; I25.2 Old myocardial infarction; Z91.19 Patient's noncompliance with other medical treatment and regimen; Z72.0 Tobacco use
CPT/HCPCS: 36415; 71045; 76700; 78452; 80048; 80053; 80307; 81001; 82040; 82947; 82962; 83036; 83880; 84443; 84484; 85025; 86704; 86705; 86706; 86707; 86803; 87340; 87350; 90686; 93005; 93017; 93306; 96360; 96361; 99285; G0378; J0696; J1650; J2785; J7060; Q0162; A9502; J1815; J7030; J7050

== ENCOUNTER 2020-09-20 14:21 | Inpatient (IN) | payer MEDICAID ==
[~2020-09-20] VITALS: Ht 165.1 cm; Wt 73.2 kg
--- NOTE | 2020-09-20 14:55 | NUR ---
PT COMES IN C/O "MY BLOOD PRESSURE WAS VERY LOW. 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 MY CHECKED MY BLOOD PRESSURE AND IT WAS LIKE LOW". PTS AT BEDSIDE STATING "HES BEEN ACTING WEIRD FOR THE LAST FEW DAYS LIKE CONFUSED. THIS HAPPENED BEFORE WHEN HE WAS THE DOCTOR PRESCRIBED HIM TOO MUCH OF HIS BLOOD PRESSURE MEDICATION." MONITORS CONNECTED. EKG COMPLETE. WARM BLANKET PROVIDED. CALL LIGHT W/IN REACH
--- NOTE | 2020-09-20 15:13 | NUR ---
PT HOME MEDICATIONS REVIEWED AND UPDATED. PT [facility]
[2020-09-20 16:01] LABS: BASOPHILS % (AUTO) 1 % (0-1); EOSINOPHILS % (AUTO) 1 % (1-7); LYMPHOCYTES % (AUTO) 15 % (22-44); MEAN CORPUSCULAR HEMOGLOBIN 28.4 pg (27.5-34.5); MEAN CORPUSCULAR HGB CONC 33.3 g/dL (33.2-36.2); MEAN PLATELET VOLUME 7.5 fL (7.4-10.4); MONOCYTES % (AUTO) 5 % (2-9); NEUTROPHILS % (AUTO) 79 % (42-75); PLATELET COUNT 298 x10^3/uL (130-400); RED BLOOD COUNT 5.77 x10^6/uL (4.38-5.82); RED CELL DISTRIBUTION WIDTH 15.2 % (9.4-14.8)
[2020-09-20 16:03] LABS: MD NO
[2020-09-20 16:12] LABS: ALANINE AMINOTRANSFERASE 37 U/L (12-78); ALBUMIN 3.5 g/dL (3.4-5.0); ANION GAP 10 mmol/L (5-15); CALCIUM 9.1 mg/dL (8.5-10.1); CHLORIDE 102 mmol/L (98-107); CREATININE 1.73 mg/dL (0.7-1.3)
[2020-09-20 16:14] LABS: ALKALINE PHOSPHATASE 81 U/L (45-117); BILIRUBIN,TOTAL 0.7 mg/dL (0.2-1.0); TOTAL PROTEIN 8.6 g/dL (6.4-8.2)
--- NOTE | 2020-09-20 16:30 | NUR ---
break rn- pt resting in bed, call light in reach.
--- NOTE | 2020-09-20 16:59 | NUR ---
PT RESTING ON [employer]. NAD. CALL LIGHT W/IN REACH. WILL CONTINUE TO MONITOR
--- NOTE | 2020-09-20 18:24 | NUR ---
PT RESTING ON GURNEY. STATES HE IS HUNGRY. DIET TRAY AT BEDSIDE. IV ACCESS OBTAINED. NAD. CALL LIGHT W/I REACH.
[2020-09-20] MEDS ORDERED: SODIUM CHLORIDE FLUSH 10ML SYR IVF ONE (18:30)
--- NOTE | 2020-09-20 18:47 | NUR ---
BEDSIDE REPORT RECEIVED FROM JUAN C MARROQUIN
--- NOTE | 2020-09-20 18:52 | NUR ---
REPORT GIVEN TO MICHELLE MARROQUIN
--- NOTE | 2020-09-20 18:52 | NUR ---
PT RESTING ON [employer]. PT ATE 100% OF MEAL. VSS. NAD. CALL LIGHT W/I REACH.
--- NOTE | 2020-09-20 19:11 | NUR ---
HOSPITALIST AT BEDSIDE
[2020-09-20] MEDS ORDERED: SODIUM CHLORIDE FLUSH 10ML SYR IVF PRN (19:30)
[2020-09-20 19:58] LABS: AMPHETAMINE SCREEN, URINE Positive (Negative); BARBITURATE SCREEN, URINE Negative (Negative); BENZODIAZEPINE SCREEN, URINE Negative (Negative); CANNABINOID SCREEN, URINE Positive (Negative); COCAINE SCREEN, URINE Negative (Negative); METHADONE SCREEN, URINE Negative (Negative); OPIATE SCREEN, URINE Negative (Negative)
--- NOTE | 2020-09-20 20:06 | NUR ---
PT SITTING UPRIGHT ON GURNEY, ABLE TO DOZE OFF. ASHLEY GUERRERO. PT DENIES ANY NEEDS AT THIS TIME. AT BEDSIDE.
--- NOTE | 2020-09-20 20:11 | NUR ---
Pt to be admitted to [facility], room 505. Report called to BILL MARROQUIN.
[2020-09-20 20:27] VITALS: BP 115/77
[2020-09-20 20:30] VITALS: BP_SYST 100; BP_SYST 104; BP_DIAS 70; BP_DIAS 72
[2020-09-20] MEDS ORDERED: DOCUSATE 100 MG CAPSULE PO PRN (20:30)
[2020-09-20] MEDS ORDERED: ACETAMINOPHEN 325 MG TABLET PO PRN (20:30)
[2020-09-20] MEDS ORDERED: MELATONIN 5 MG TABLET PO PRN (20:30)
[2020-09-20 20:38] VITALS: BP 115/77
[2020-09-20] MEDS: HEPARIN 5,000 UNITS/ML, 1ML SQ SCH (21:00)
[2020-09-20] MEDS: CARVEDILOL 6.25 MG TABLET PO SCH (21:00)
[2020-09-20] MEDS: INSULIN LISPRO 100 UNITS/ML, PEN SQ-INSULIN SCH (23:06)
[2020-09-21] VITALS (7 sets, daily range): BP systolic 92–107; BP diastolic 52–74
[2020-09-21] MEDS: HEPARIN 5,000 UNITS/ML, 1ML SQ SCH ×2 (04:24→12:08)
[2020-09-21 05:08] LABS: BASOPHILS % (AUTO) 1 % (0-1); EOSINOPHILS % (AUTO) 2 % (1-7); LYMPHOCYTES % (AUTO) 28 % (22-44); MEAN CORPUSCULAR HEMOGLOBIN 28.2 pg (27.5-34.5); MEAN CORPUSCULAR HGB CONC 33.3 g/dL (33.2-36.2); MEAN PLATELET VOLUME 7.8 fL (7.4-10.4); MONOCYTES % (AUTO) 7 % (2-9); NEUTROPHILS % (AUTO) 62 % (42-75); PLATELET COUNT 270 x10^3/uL (130-400); RED CELL DISTRIBUTION WIDTH 14.6 % (9.4-14.8)
[2020-09-21 05:12] LABS: MD NO
[2020-09-21 05:22] LABS: ANION GAP 7 mmol/L (5-15); CALCIUM 8.8 mg/dL (8.5-10.1); CHLORIDE 107 mmol/L (98-107)
[2020-09-21 05:23] LABS: CREATININE 1.39 mg/dL (0.7-1.3)
[2020-09-21] MEDS: INSULIN LISPRO 100 UNITS/ML, PEN SQ-INSULIN SCH ×2 (07:00→11:00)
[2020-09-21] MEDS: CARVEDILOL 6.25 MG TABLET PO SCH (08:42)
[2020-09-21] MEDS ORDERED: SPIRONOLACTONE 25 MG TABLET PO SCH (09:00)
[2020-09-21] MEDS ORDERED: FUROSEMIDE 40 MG TABLET PO SCH (09:00)
[2020-09-21] MEDS ORDERED: LISINOPRIL 5 MG TABLET PO SCH (09:00)
== END 2020-09-21 17:00 | disposition left against medical advice (07) | DRG 315 ==
LOC: ED 18:43 → EDIP 19:08 → 5SO 20:27
PROVIDERS: ADMIT Internal Medicine; ATTEND Family Medicine
DX: I95.9 Hypotension, unspecified (principal); I13.0 Hypertensive heart and chronic kidney disease with heart failure and stage 1 through stage 4 chronic kidney disease, or unspecified chronic kidney disease; I42.8 Other cardiomyopathies; I27.20 Pulmonary hypertension, unspecified; E86.0 Dehydration; Z53.29 Procedure and treatment not carried out because of patient's decision for other reasons; E11.22 Type 2 diabetes mellitus with diabetic chronic kidney disease; F17.210 Nicotine dependence, cigarettes, uncomplicated; E11.65 Type 2 diabetes mellitus with hyperglycemia; N18.30 Chronic kidney disease, stage 3 unspecified; I50.9 Heart failure, unspecified; F10.11 Alcohol abuse, in remission; Z87.11 Personal history of peptic ulcer disease; Z83.3 Family history of diabetes mellitus; Z91.19 Patient's noncompliance with other medical treatment and regimen; I25.2 Old myocardial infarction
CPT/HCPCS: 36415; 71045; 80048; 80053; 80307; 82962; 83735; 83880; 84100; 85025; 93005; 93306; 96372; 99285; G0378; J1644; J1815

== ENCOUNTER 2020-10-17 17:59 | Inpatient (IN) | payer MEDICAID ==
[~2020-10-17] VITALS: Ht 172.7 cm; Wt 85.6 kg
--- NOTE | 2020-10-17 18:11 | NUR ---
DR VYAS BS FOR EXAM. FBS 183. PT DENIES RECENT ETOH INTAKE, RECENT ILLEGAL DRUGS ([facility] - "ABOUT A MONTH" AGO), SMOKING. PT NOT COMPLETELY COOPERATIVE WITH HISTORY AND CURRENT SX. CARDIAC MONITORING IN PROGRESS. EKG DONE AT TRIAGE.
--- NOTE | 2020-10-17 18:22 | NUR ---
IV ATTEMPTED X3. U/S ASSIST NOW AT BS. SPOUSE IN ROOM, STATES DECREASED APPETITE X 36 HRS, DIFFICULTY BREATHING, PAIN. PT INTERMITTENTLY STOPS HYPERVENTILATING AND MOANING TO ASK ABOUT IV INSERTION AND PENDING RECTAL TEMPERATURE. HASN'T TAKE HTN MED DUE TO LOW READINGS LATELY. SPOUSE DENIES PT HAS HAD ETOH INTAKE OR USED DRUGS.
[2020-10-17] MEDS ORDERED: METF500T17 PO (18:28)
[2020-10-17] MEDS ORDERED: ASPI-191 PO (18:29)
[2020-10-17] MEDS ORDERED: SODIUM CHLORIDE FLUSH 10ML SYR IVF ONE (18:30)
[2020-10-17] MEDS ORDERED: SODIUM CHLORIDE 0.9% 1,000ML IVBOLUS ONE ×2 (18:30→21:00)
[2020-10-17] MEDS ORDERED: SODIUM CHLORIDE 0.9% 1,000 ML IV ONE (18:30)
--- NOTE | 2020-10-17 18:31 | NUR ---
PT REPORTS DIFFICULTY VOIDING. DENIES PAIN, BURNING W/ URINATION.
--- NOTE | 2020-10-17 18:40 | NUR ---
XR AT BS
[2020-10-17 18:53] LABS: BASOPHILS % (AUTO) 0 % (0-1); EOSINOPHILS % (AUTO) 0 % (1-7); LYMPHOCYTES % (AUTO) 12 % (22-44); MEAN CORPUSCULAR HEMOGLOBIN 28.1 pg (27.5-34.5); MEAN CORPUSCULAR HGB CONC 32.7 g/dL (33.2-36.2); MEAN PLATELET VOLUME 7.7 fL (7.4-10.4); MONOCYTES % (AUTO) 10 % (2-9); NEUTROPHILS % (AUTO) 78 % (42-75); PLATELET COUNT 241 x10^3/uL (130-400); RED BLOOD COUNT 5.08 x10^6/uL (4.38-5.82); RED CELL DISTRIBUTION WIDTH 15.4 % (9.4-14.8)
[2020-10-17 18:58] LABS: MD NO
--- NOTE | 2020-10-17 19:07 | NUR ---
PT PROVIDED VOIDED URINE SPECIMEN: CLOUDY, RED. RECTAL TEMP OBTAINED: 104.5. ERP WILL BE NOTIFIED. NS INFUSING W-O; IV SITE PATENT. SPOUSE AT BS. SIDE RAIL UP X1, CALL LIGHT W/IN REACH. PT C/O ABD PAIN; WILL NOTIFY ERP
[2020-10-17 19:08] LABS: ALBUMIN 3.4 g/dL (3.4-5.0); ANION GAP 13 mmol/L (5-15); CALCIUM 8.5 mg/dL (8.5-10.1); CHLORIDE 107 mmol/L (98-107)
[2020-10-17] MEDS ORDERED: ACETAMINOPHEN 500 MG TABLET ONE (19:18)
[2020-10-17 19:23] LABS: CREATININE 1.73 mg/dL (0.7-1.3)
[2020-10-17 19:24] LABS: ALANINE AMINOTRANSFERASE 3207 U/L (12-78); ALKALINE PHOSPHATASE 101 U/L (45-117); BILIRUBIN,TOTAL 3.6 mg/dL (0.2-1.0); TOTAL PROTEIN 8.1 g/dL (6.4-8.2); TROPONIN I 0.116 ng/mL (0.000-0.045)
[2020-10-17] MEDS ORDERED: ONDANSETRON 2MG/ML, 2ML IVPush ONE (19:30)
[2020-10-17] MEDS ORDERED: ACETAMINOPHEN 500 MG TABLET PO ONE (19:30)
[2020-10-17] MEDS ORDERED: MORPHINE SULFATE 4 MG/ML, 1ML IVPush PRN (19:30)
--- NOTE | 2020-10-17 19:33 | NUR ---
TYLENOL GIVEN PER EMAR
[2020-10-17 19:35] LABS: MICROSCOPIC INDICATED
[2020-10-17] MEDS ORDERED: MORPHINE SULFATE 4 MG/ML, 1ML ONE (19:45)
[2020-10-17] MEDS ORDERED: ONDANSETRON 2MG/ML, 2ML ONE (19:45)
--- NOTE | 2020-10-17 19:55 | NUR ---
ZOFRAN AND MORPHINE GIVEN PER EMAR
[2020-10-17 20:22] LABS: SALICYLATE LEVEL < 1.7 mg/dL (2.8-20.0)
[2020-10-17] MEDS ORDERED: OMNIPAQUE 350 MG/ML, 100ML BOTTLE ONE (20:25)
--- NOTE | 2020-10-17 20:30 | NUR ---
PER DR VYAS, ADDITIONAL TESTING AND ANTIBIOTICS TO BE ORDERED. INFORMED ERP THAT ONLY ONE SET OF BLOOD CX HAS BEEN DRAWN
[2020-10-17 20:35] LABS: AMPHETAMINE SCREEN, URINE Positive (Negative); BARBITURATE SCREEN, URINE Negative (Negative); BENZODIAZEPINE SCREEN, URINE Negative (Negative); CANNABINOID SCREEN, URINE Positive (Negative); COCAINE SCREEN, URINE Negative (Negative); METHADONE SCREEN, URINE Negative (Negative); OPIATE SCREEN, URINE Negative (Negative)
[2020-10-17] MEDS ORDERED: CEFTRIAXONE PMX 1GM/50ML 50 ML ONE (20:43)
--- NOTE | 2020-10-17 20:45 | NUR ---
PT ASLEEP ON GURNEY, RESP EVEN & UNLABORED. CARDIAC MONITORING IN PROGRESS. NS INFUSING; 400ML INFUSED. RATE INCREASED TO W-O FOR ADDITIONAL BOLUS. SIDE RAILS UP X2, CALL LIGHT ON BED, SPOUSE AT BS. Addendum: 10/17/20 at 2055 by DAVID CORRECTION: SLOW DRIP NS INFUSION EXCHANGED FOR 1L NS BOLUS BAG.
[2020-10-17] MEDS ORDERED: CEFTRIAXONE PMX 1GM/50ML 50 ML IVPB ONE (21:00)
--- NOTE | 2020-10-17 21:05 | NUR ---
CARMENZA FRANK, INFUSING AT 100ML/HR VIA PUMP.
--- NOTE | 2020-10-17 21:06 | NUR ---
SPOUSE: ROSEMARY HAGEN ( [birth year]) CELL [phone].
--- NOTE | 2020-10-17 21:34 | NUR ---
ROCEPHIN INFUSED. NS BOLUS INFUSING. PT ASLEEP.
--- NOTE | 2020-10-17 21:36 | NUR ---
PULSE OX 91%RA. O2 1L NC APPLIED; PULSE OX INCREASED TO 97%
--- NOTE | 2020-10-17 22:02 | NUR ---
PT REPORT TO LOPEZ QUIJANO. PT CARE TRANSFERRED. PT AWAITING U/S. VERBAL PER DR VYAS: ANOTHER LITER NS AT O.
--- NOTE | 2020-10-17 22:06 | NUR ---
NS HUNG; INFUSING AT TKO. PT ASLEEP, RESP EVEN & UNLABORED. SIDE RAILS UP X 2, CALL LIGHT ON BED.
--- NOTE | 2020-10-17 22:24 | NUR ---
PATIENT RESTING IN BED IN NAD WITH EYES CLOSED. CALL QUEEN IN REACH. SAFETY MAINTAINED. I ASSUMED CARE OF THIS PATIENT AT THIS TIME. REPORT RECEIVED BY ALISA MARROQUIN. WILL CONTINUE TO FREQUENTLY MONITOR
--- NOTE | 2020-10-17 23:25 | NUR ---
patient resting in bed in NAD. denies pain. arousable to voice. call sanchez in reach. VS remain stable on 1L via NC. will continue to monitor.
[2020-10-17] MEDS ORDERED: SODIUM CHLORIDE FLUSH 10ML SYR IVF PRN (23:30)
--- NOTE | 2020-10-17 23:54 | NUR ---
report given to Dontrell MARROQUIN
[2020-10-18] VITALS (13 sets, daily range): BP systolic 75–92; BP diastolic 57–69
[2020-10-18] MEDS ORDERED: hydrALAzine 20 MG/ML, 1ML IVPush PRN
[2020-10-18] MEDS ORDERED: POLYETHYLENE GLYCOL 17 GM PACKET PO PRN
[2020-10-18] MEDS ORDERED: ONDANSETRON 2MG/ML, 2ML IVPush PRN
[2020-10-18] MEDS ORDERED: BISACODYL 10 MG SUPP PR PRN
[2020-10-18] MEDS ORDERED: PROMETHAZINE 25 MG/ML, 1ML IM PRN
[2020-10-18] MEDS ORDERED: DOCUSATE 100 MG CAPSULE PO PRN
[2020-10-18] MEDS ORDERED: ENOXAPARIN 40 MG/0.4 ML SQ SCH
[2020-10-18] MEDS ORDERED: ONDANSETRON ODT 4 MG PO PRN
[2020-10-18] MEDS ORDERED: VANCOMYCIN 1,900 MG in SODIUM CHLORIDE 0.9% 250 ML IV ONE (00:30)
[2020-10-18] MEDS ORDERED: VANCOMYCIN PMX 1GM/200ML 200 ML IV ONE (00:30)
[2020-10-18] MEDS ORDERED: PHARMACOKINETIC MONITORING MC PRN (00:30)
[2020-10-18] MEDS ORDERED: VANCOMYCIN PER PHARMACY MC PRN (00:30)
[2020-10-18] MEDS ORDERED: PHARMACOKINETIC CONSULTATION MC ONE (00:30)
[2020-10-18 01:41] LABS: TROPONIN I 0.271 ng/mL (0.000-0.045)
[2020-10-18] MEDS ORDERED: SODIUM CHLORIDE 0.9%, 500ML IVBOLUS ONE (02:00)
[2020-10-18 02:05] LABS: ANION GAP 9 mmol/L (5-15); CHLORIDE 110 mmol/L (98-107); CREATININE 2.02 mg/dL (0.7-1.3)
[2020-10-18 02:14] LABS: CALCIUM 7.1 mg/dL (8.5-10.1)
[2020-10-18] MEDS ORDERED: SODIUM CHLORIDE 0.9%, 500ML IVBOLUS STA (04:08)
[2020-10-18] MEDS ORDERED: GLUCAGON 1 MG IM PRN (04:30)
[2020-10-18] MEDS ORDERED: INSULIN REGULAR 100 UNITS/ML, 3ML VIAL SQ-INSULIN ONE (04:30)
[2020-10-18] MEDS ORDERED: SODIUM BICARB 8.4%, 50ML SYRINGE IVPush ONE (04:30)
[2020-10-18] MEDS ORDERED: DEXTROSE 50%, 50ML SYRINGE IVPush ONE (04:30)
[2020-10-18] MEDS ORDERED: SODIUM ZIRCONIUM CYCLOSILICATE 10 GM PO ONE (04:30)
[2020-10-18] MEDS ORDERED: DEXTROSE 4 GM TAB.CHEW PO PRN (04:30)
[2020-10-18] MEDS ORDERED: DEXTROSE 50%, 50ML SYRINGE IVPush PRN (04:30)
[2020-10-18] MEDS ORDERED: SODIUM CHLORIDE 0.9% 1,000ML IVBOLUS ONE (05:30)
[2020-10-18] MEDS: INSULIN LISPRO 100 UNITS/ML, PEN SQ-INSULIN SCH ×4 (07:00→21:14)
[2020-10-18 07:17] LABS: BASOPHILS % (AUTO) 0 % (0-1); EOSINOPHILS % (AUTO) 0 % (1-7); LYMPHOCYTES % (AUTO) 7 % (22-44); MEAN CORPUSCULAR HEMOGLOBIN 28.1 pg (27.5-34.5); MEAN CORPUSCULAR HGB CONC 32.5 g/dL (33.2-36.2); MONOCYTES % (AUTO) 9 % (2-9); NEUTROPHILS % (AUTO) 84 % (42-75); PLATELET COUNT 170 x10^3/uL (130-400); RED CELL DISTRIBUTION WIDTH 15.4 % (9.4-14.8)
[2020-10-18 07:29] LABS: INTERNATIONAL NORMALIZED RATIO 2.79 (0.93-1.1); PROTHROMBIN TIME 29.3 Seconds (9.6-11.5)
[2020-10-18 07:30] LABS: ALBUMIN 2.8 g/dL (3.4-5.0); CALCIUM 6.8 mg/dL (8.5-10.1); CHLORIDE 112 mmol/L (98-107)
[2020-10-18 07:41] LABS: MD NO
[2020-10-18] MEDS: ASPIRIN 81 MG TABLET EC PO SCH (07:52)
[2020-10-18] MEDS: SODIUM CHLORIDE FLUSH 10ML SYR IVF SCH ×2 (07:52→21:14)
[2020-10-18 07:55] LABS: ALANINE AMINOTRANSFERASE 6323 U/L (12-78); ALKALINE PHOSPHATASE 94 U/L (45-117); CHOL/HDL RATIO 3.5; CHOLESTEROL, TOTAL 101 mg/dL (140-239); CREATININE 2.11 mg/dL (0.7-1.3); HDL CHOL % 29 % (26-37); HDL CHOLESTEROL (DIRECT) 29 mg/dL (40-60); LDL CHOLESTEROL,CALCULATED 60 mg/dL (54-169); LDL/HDL RATIO 2.1 (0.5-3.0); TOTAL PROTEIN 6.8 g/dL (6.4-8.2); TRIGLYCERIDES 58 mg/dL (50-200); VLDL CHOLESTEROL 12 mg/dL (0-25)
[2020-10-18 07:56] LABS: ANION GAP 11 mmol/L (5-15)
[2020-10-18] MEDS: LACTULOSE 20 GM/30 ML UDC PO SCH ×2 (09:54→21:14)
[2020-10-18 12:54] LABS: ANION GAP 13 mmol/L (5-15); CALCIUM 6.8 mg/dL (8.5-10.1); CHLORIDE 110 mmol/L (98-107)
[2020-10-18 13:32] LABS: ALANINE AMINOTRANSFERASE 7466 U/L (12-78); ALKALINE PHOSPHATASE 105 U/L (45-117); BILIRUBIN, DIRECT 2.1 mg/dL (0.1-0.2); BILIRUBIN,INDIRECT 2.3 mg/dL (0.0-2.0); BILIRUBIN,TOTAL 4.4 mg/dL (0.2-1.0); CREATININE 2.32 mg/dL (0.7-1.3); TOTAL IRON BINDING CAPACITY 316 mcg/dL (250-450); TOTAL PROTEIN 7.1 g/dL (6.4-8.2); TROPONIN I 0.257 ng/mL (0.000-0.045)
[2020-10-18 13:33] LABS: % IRON SATURATION 62 % (20-55); IRON LEVEL 196 mcg/dL (65-175)
[2020-10-18] MEDS: RIFAXIMIN 550 MG TABLET PO SCH (15:20)
[2020-10-18] MEDS: morphine SULFATE 10 MG/ML, 1ML IVPush PRN (18:28)
[2020-10-18] MEDS: CEFTRIAXONE PMX 2GM/50ML 50 ML IVPB SCH (20:57)
[2020-10-19 04:30] LABS: BASOPHILS % (AUTO) 0 % (0-1); EOSINOPHILS % (AUTO) 0 % (1-7); LYMPHOCYTES % (AUTO) 13 % (22-44); MEAN CORPUSCULAR HEMOGLOBIN 28.5 pg (27.5-34.5); MEAN CORPUSCULAR HGB CONC 32.6 g/dL (33.2-36.2); MEAN PLATELET VOLUME 8.2 fL (7.4-10.4); MONOCYTES % (AUTO) 6 % (2-9); NEUTROPHILS % (AUTO) 81 % (42-75); PLATELET COUNT 154 x10^3/uL (130-400); RED CELL DISTRIBUTION WIDTH 15.9 % (9.4-14.8)
[2020-10-19 04:32] LABS: MD NO
[2020-10-19 04:38] LABS: ALBUMIN 2.9 g/dL (3.4-5.0); ANION GAP 14 mmol/L (5-15); CALCIUM 7.1 mg/dL (8.5-10.1); CHLORIDE 108 mmol/L (98-107); CREATININE 3.04 mg/dL (0.7-1.3)
[2020-10-19 04:41] LABS: INTERNATIONAL NORMALIZED RATIO 3.59 (0.93-1.1); PROTHROMBIN TIME 37.5 Seconds (9.6-11.5)
[2020-10-19 04:47] LABS: ALKALINE PHOSPHATASE 127 U/L (45-117); BILIRUBIN,TOTAL 4.4 mg/dL (0.2-1.0); TOTAL PROTEIN 6.8 g/dL (6.4-8.2)
[2020-10-19 04:54] LABS: ALANINE AMINOTRANSFERASE 6613 U/L (12-78)
[2020-10-19] MEDS: RIFAXIMIN 550 MG TABLET PO SCH ×2 (06:00→16:20)
[2020-10-19] MEDS: INSULIN LISPRO 100 UNITS/ML, PEN SQ-INSULIN SCH ×4 (06:03→20:57)
[2020-10-19] MEDS ORDERED: MAGNESIUM SULFATE PMX 2GM/50ML 50 ML IV ONE (07:30)
[2020-10-19 08:09] LABS: CHLORIDE,URINE RANDOM 27 mmol/L; POTASSIUM,URINE RANDOM 51 mmol/L; SODIUM,URINE RANDOM 16 mmol/L
[2020-10-19] MEDS: SODIUM CHLORIDE FLUSH 10ML SYR IVF SCH ×2 (08:44→20:49)
[2020-10-19] MEDS: LACTULOSE 20 GM/30 ML UDC PO SCH ×2 (09:14→20:49)
[2020-10-19] MEDS: ASPIRIN 81 MG TABLET EC PO SCH (09:14)
[2020-10-19] MEDS: PHYTONADIONE 10 MG/ML, 1ML SQ SCH (09:14)
[2020-10-19] MEDS: SODIUM BICARBONATE 8.4% 150 MEQ in DEXTROSE 5% 1,000 ML IV SCH ×2 (09:32→22:14)
[2020-10-19 16:16] LABS: ALBUMIN 2.5 g/dL (3.4-5.0); ANION GAP 8 mmol/L (5-15); CALCIUM 6.5 mg/dL (8.5-10.1); CHLORIDE 105 mmol/L (98-107); CREATININE 3.78 mg/dL (0.7-1.3)
[2020-10-19 16:18] LABS: ALKALINE PHOSPHATASE 124 U/L (45-117); BILIRUBIN,TOTAL 3.9 mg/dL (0.2-1.0); TOTAL PROTEIN 6.1 g/dL (6.4-8.2)
[2020-10-19 16:39] LABS: ALANINE AMINOTRANSFERASE 4349 U/L (12-78)
[2020-10-19] MEDS: morphine SULFATE 10 MG/ML, 1ML IVPush PRN (16:56)
[2020-10-19] MEDS: CEFTRIAXONE PMX 2GM/50ML 50 ML IVPB SCH (20:49)
[2020-10-20 04:19] LABS: MEAN CORPUSCULAR HEMOGLOBIN 28.4 pg (27.5-34.5); MEAN PLATELET VOLUME 8.2 fL (7.4-10.4); PLATELET COUNT 125 x10^3/uL (130-400); RED CELL DISTRIBUTION WIDTH 15.7 % (9.4-14.8)
[2020-10-20 04:31] LABS: ALBUMIN 2.5 g/dL (3.4-5.0); ANION GAP 6 mmol/L (5-15); CALCIUM 6.9 mg/dL (8.5-10.1); CHLORIDE 103 mmol/L (98-107); CREATININE 3.51 mg/dL (0.7-1.3); INTERNATIONAL NORMALIZED RATIO 2.63 (0.93-1.1); PROTHROMBIN TIME 27.6 Seconds (9.6-11.5)
[2020-10-20 04:46] LABS: MD YES
[2020-10-20 04:47] LABS: ALANINE AMINOTRANSFERASE 3493 U/L (12-78); ALKALINE PHOSPHATASE 109 U/L (45-117); BILIRUBIN,TOTAL 3.9 mg/dL (0.2-1.0); TOTAL PROTEIN 5.7 g/dL (6.4-8.2)
[2020-10-20 04:50] LABS: EOS% (MANUAL) 3 % (1-7); LYMPHS% (MANUAL) 12 % (22-44); MONOS% (MANUAL) 4 % (2-9); SEGS% (MANUAL) 81 % (42-75)
[2020-10-20 04:51] LABS: <PLATELET ESTIMATE> DECREASED; <PLT MORPHOLOGY> NORMAL PLT MORPH; ANISOCYTOSIS 1+
[2020-10-20] MEDS: INSULIN LISPRO 100 UNITS/ML, PEN SQ-INSULIN SCH ×4 (06:18→22:02)
[2020-10-20] MEDS: RIFAXIMIN 550 MG TABLET PO SCH ×2 (06:21→16:26)
[2020-10-20] MEDS ORDERED: POTASSIUM CHLORIDE 20 MEQ TAB.ER.PRT PO ONE (07:30)
[2020-10-20] MEDS ORDERED: CALCIUM CHLORIDE 13.6 MEQ in SODIUM CHLORIDE 0.9% 100 ML IV ONE (07:30)
[2020-10-20] MEDS: SODIUM CHLORIDE FLUSH 10ML SYR IVF SCH ×2 (08:17→19:27)
[2020-10-20] MEDS: PHYTONADIONE 10 MG/ML, 1ML SQ SCH (08:25)
[2020-10-20] MEDS: LACTULOSE 20 GM/30 ML UDC PO SCH ×2 (08:25→20:35)
[2020-10-20] MEDS: ASPIRIN 81 MG TABLET EC PO SCH (08:25)
[2020-10-20] MEDS: morphine SULFATE 10 MG/ML, 1ML IVPush PRN (08:54)
[2020-10-20] MEDS ORDERED: SODIUM CHLORIDE 0.9% 1,000 ML IV SCH (09:00)
[2020-10-20 12:08] VITALS: BP 104/69
[2020-10-20 13:18] VITALS: BP 115/81
[2020-10-20 13:50] LABS: MICROSCOPIC INDICATED
[2020-10-20 13:53] LABS: CHLORIDE,URINE RANDOM 42 mmol/L; POTASSIUM,URINE RANDOM 27 mmol/L; SODIUM,URINE RANDOM 35 mmol/L
[2020-10-20 14:46] LABS: ANA SCREEN NEGATIVE (Negative)
[2020-10-20] MEDS: OXYcodone IR 5MG TABLET PO PRN ×2 (19:26→20:34)
[2020-10-20 19:32] VITALS: BP 128/90
[2020-10-20] MEDS: CEFTRIAXONE PMX 2GM/50ML 50 ML IVPB SCH (20:28)
[2020-10-21 02:07] VITALS: BP 128/89
[2020-10-21 06:12] LABS: BASOPHILS % (AUTO) 1 % (0-1); EOSINOPHILS % (AUTO) 2 % (1-7); INTERNATIONAL NORMALIZED RATIO 1.99 (0.93-1.1); LYMPHOCYTES % (AUTO) 25 % (22-44); MEAN CORPUSCULAR HEMOGLOBIN 28.4 pg (27.5-34.5); MEAN CORPUSCULAR HGB CONC 32.8 g/dL (33.2-36.2); MEAN PLATELET VOLUME 8.4 fL (7.4-10.4); MONOCYTES % (AUTO) 13 % (2-9); NEUTROPHILS % (AUTO) 59 % (42-75); PLATELET COUNT 120 x10^3/uL (130-400); RED BLOOD COUNT 4.54 x10^6/uL (4.38-5.82); RED CELL DISTRIBUTION WIDTH 15.9 % (9.4-14.8)
[2020-10-21 06:15] LABS: ALBUMIN 2.5 g/dL (3.4-5.0); ANION GAP 9 mmol/L (5-15); CALCIUM 7.3 mg/dL (8.5-10.1); CHLORIDE 104 mmol/L (98-107); CREATININE 2.78 mg/dL (0.7-1.3)
[2020-10-21 06:26] LABS: MD NO
[2020-10-21 06:28] LABS: ALANINE AMINOTRANSFERASE 2562 U/L (12-78); ALKALINE PHOSPHATASE 120 U/L (45-117); BILIRUBIN,TOTAL 4.2 mg/dL (0.2-1.0); TOTAL PROTEIN 6.1 g/dL (6.4-8.2)
[2020-10-21 06:43] VITALS: BP 114/81
[2020-10-21] MEDS: INSULIN LISPRO 100 UNITS/ML, PEN SQ-INSULIN SCH ×4 (06:50→20:33)
[2020-10-21] MEDS ORDERED: POTASSIUM CHLORIDE 20 MEQ TAB.ER.PRT PO ONE (07:00)
[2020-10-21] MEDS: SODIUM CHLORIDE 0.9% 1,000 ML IV SCH (07:07)
[2020-10-21] MEDS: RIFAXIMIN 550 MG TABLET PO SCH ×2 (07:07→17:13)
[2020-10-21] MEDS: SODIUM CHLORIDE FLUSH 10ML SYR IVF SCH ×2 (09:00→20:20)
[2020-10-21] MEDS: PHYTONADIONE 10 MG/ML, 1ML SQ SCH (09:10)
[2020-10-21] MEDS: ASPIRIN 81 MG TABLET EC PO SCH (09:10)
[2020-10-21] MEDS: LACTULOSE 20 GM/30 ML UDC PO SCH ×2 (09:10→20:20)
[2020-10-21 13:04] VITALS: BP 139/97
[2020-10-21] MEDS: OXYcodone IR 5MG TABLET PO PRN (17:56)
[2020-10-21 19:15] VITALS: BP 145/108
[2020-10-21 19:36] VITALS: BP 152/109
[2020-10-21 19:38] VITALS: BP 137/96
[2020-10-21] MEDS: CEFTRIAXONE PMX 2GM/50ML 50 ML IVPB SCH (20:19)
[2020-10-22] VITALS (10 sets, daily range): BP systolic 121–157; BP diastolic 89–112
[2020-10-22] MEDS: SODIUM CHLORIDE 0.9% 1,000 ML IV SCH (00:26)
[2020-10-22 03:02] LABS: BASOPHILS % (AUTO) 1 % (0-1); EOSINOPHILS % (AUTO) 0 % (1-7); LYMPHOCYTES % (AUTO) 23 % (22-44); MEAN CORPUSCULAR HEMOGLOBIN 28.4 pg (27.5-34.5); MEAN CORPUSCULAR HGB CONC 32.9 g/dL (33.2-36.2); MEAN PLATELET VOLUME 8.5 fL (7.4-10.4); MONOCYTES % (AUTO) 15 % (2-9); NEUTROPHILS % (AUTO) 60 % (42-75); PLATELET COUNT 125 x10^3/uL (130-400); RED CELL DISTRIBUTION WIDTH 16.5 % (9.4-14.8)
[2020-10-22 03:03] LABS: MD NO
[2020-10-22 03:16] LABS: ALBUMIN 2.8 g/dL (3.4-5.0); ANION GAP 10 mmol/L (5-15); CALCIUM 7.7 mg/dL (8.5-10.1); CHLORIDE 104 mmol/L (98-107)
[2020-10-22 03:21] LABS: CREATININE 2.49 mg/dL (0.7-1.3)
[2020-10-22] MEDS: RIFAXIMIN 550 MG TABLET PO SCH ×2 (05:19→17:06)
[2020-10-22] MEDS ORDERED: morphine SULFATE 10 MG/ML, 1ML IVPush PRN (07:30)
[2020-10-22] MEDS ORDERED: OXYcodone IR 5MG TABLET PO PRN (07:30)
[2020-10-22] MEDS: INSULIN LISPRO 100 UNITS/ML, PEN SQ-INSULIN SCH ×4 (07:58→20:45)
[2020-10-22] MEDS: LACTOBACILLUS CHEW TABLET PO SCH ×3 (07:59→20:42)
[2020-10-22] MEDS: ASPIRIN 81 MG TABLET EC PO SCH (07:59)
[2020-10-22] MEDS: CARVEDILOL 3.125 MG TABLET PO SCH ×2 (07:59→17:06)
[2020-10-22] MEDS: SODIUM CHLORIDE FLUSH 10ML SYR IVF SCH ×2 (07:59→20:43)
[2020-10-22] MEDS: CALCIUM/VITAMIN D3 250-125 TABLET PO SCH ×2 (07:59→20:43)
[2020-10-22] MEDS: LACTULOSE 20 GM/30 ML UDC PO SCH ×2 (08:00→20:42)
[2020-10-22 09:15] LABS: TROPONIN I 0.075 ng/mL (0.000-0.045)
[2020-10-22] MEDS ORDERED: SODIUM CHLORIDE 0.9% 1,000 ML IV SCH (09:30)
[2020-10-22] MEDS ORDERED: PLEASE ENTER ALLERGIES MC SCH (11:30)
[2020-10-22] MEDS: HEPARIN 5,000 UNITS/ML, 1ML SQ SCH ×2 (12:43→20:42)
[2020-10-22] MEDS: FUROSEMIDE 40 MG TABLET PO SCH (12:44)
[2020-10-22] MEDS: LISINOPRIL 10 MG TABLET PO SCH ×2 (12:44→23:00)
[2020-10-22] MEDS ORDERED: MAALOX/HYOSCYAMINE/LIDOCAINE 45 ML BTL PO ONE (19:00)
[2020-10-22] MEDS: CEFTRIAXONE PMX 2GM/50ML 50 ML IVPB SCH (20:42)
[2020-10-22] MEDS ORDERED: FAMOTIDINE 20 MG TABLET PO SCH (21:00)
[2020-10-22] MEDS ORDERED: MELATONIN 5 MG TABLET PO ONE (23:00)
[2020-10-23 00:27] VITALS: BP 126/91
[2020-10-23 01:20] VITALS: BP 124/91
[2020-10-23] MEDS: HEPARIN 5,000 UNITS/ML, 1ML SQ SCH (04:23)
[2020-10-23 05:04] VITALS: BP 115/84
[2020-10-23 05:54] LABS: ALBUMIN 2.9 g/dL (3.4-5.0); ANION GAP 7 mmol/L (5-15); CALCIUM 7.8 mg/dL (8.5-10.1); CHLORIDE 101 mmol/L (98-107); CREATININE 2.45 mg/dL (0.7-1.3)
[2020-10-23 06:15] VITALS: BP 127/93
[2020-10-23] MEDS: CARVEDILOL 3.125 MG TABLET PO SCH (06:22)
[2020-10-23] MEDS: RIFAXIMIN 550 MG TABLET PO SCH (06:22)
[2020-10-23] MEDS ORDERED: BENZONATATE 100 MG CAPSULE PO PRN (06:30)
[2020-10-23] MEDS: INSULIN LISPRO 100 UNITS/ML, PEN SQ-INSULIN SCH ×2 (07:00→10:51)
[2020-10-23] MEDS: LACTULOSE 20 GM/30 ML UDC PO SCH (08:25)
[2020-10-23] MEDS: LACTOBACILLUS CHEW TABLET PO SCH (08:25)
[2020-10-23] MEDS: FUROSEMIDE 40 MG TABLET PO SCH (08:25)
[2020-10-23] MEDS: ASPIRIN 81 MG TABLET EC PO SCH (08:26)
[2020-10-23] MEDS: SODIUM CHLORIDE FLUSH 10ML SYR IVF SCH (08:26)
[2020-10-23] MEDS: LISINOPRIL 10 MG TABLET PO SCH (08:26)
[2020-10-23] MEDS: CALCIUM/VITAMIN D3 250-125 TABLET PO SCH (08:26)
[2020-10-23] MEDS ORDERED: SPIRONOLACTONE 25 MG TABLET PO SCH (09:00)
[2020-10-23] MEDS ORDERED: ERGOCALCIFEROL 50,000 UNIT CAPSULE PO SCH (10:00)
[2020-10-23] MEDS ORDERED: LISI-167 PO (10:51)
[2020-10-23] MEDS ORDERED: CALC1TAB68 PO (10:51)
[2020-10-23] MEDS ORDERED: INSU100I11 SQ-INSULIN (10:51)
[2020-10-23] MEDS ORDERED: BENZ-17 PO (10:51)
[2020-10-23] MEDS ORDERED: ACID1TAB7 PO (10:51)
[2020-10-23] MEDS ORDERED: LACT20SO13 PO (10:51)
[2020-10-23] MEDS ORDERED: ERGO500017 PO (10:51)
[2020-10-23] MEDS ORDERED: RIFA550T4 PO (10:51)
[2020-10-23] MEDS ORDERED: CARVEDILOL 6.25 MG TABLET PO SCH (18:00)
== END 2020-10-23 12:02 | disposition home or self-care (01) | DRG 871 ==
LOC: ED 18:12 → EDIP 23:30 → 5SO 23:58 → CCU 10-18 05:34 → 3N 10-20 13:07 → DCLOUNGE 10-23 12:00
PROVIDERS: ADMIT Internal Medicine; ATTEND Internal Medicine
DX: A41.9 Sepsis, unspecified organism (principal); I21.A1 Myocardial infarction type 2; I50.43 Acute on chronic combined systolic (congestive) and diastolic (congestive) heart failure; K72.00 Acute and subacute hepatic failure without coma; N17.0 Acute kidney failure with tubular necrosis; I13.0 Hypertensive heart and chronic kidney disease with heart failure and stage 1 through stage 4 chronic kidney disease, or unspecified chronic kidney disease; N28.0 Ischemia and infarction of kidney; I42.9 Cardiomyopathy, unspecified; D68.9 Coagulation defect, unspecified; B17.9 Acute viral hepatitis, unspecified; Z20.822 Contact with and (suspected) exposure to COVID-19; Z88.8 Allergy status to other drugs, medicaments and biological substances; I25.10 Atherosclerotic heart disease of native coronary artery without angina pectoris; I27.20 Pulmonary hypertension, unspecified; K82.8 Other specified diseases of gallbladder; N18.30 Chronic kidney disease, stage 3 unspecified; R31.29 Other microscopic hematuria; Z83.3 Family history of diabetes mellitus; Z86.711 Personal history of pulmonary embolism; Z87.11 Personal history of peptic ulcer disease; Z91.19 Patient's noncompliance with other medical treatment and regimen; F17.210 Nicotine dependence, cigarettes, uncomplicated; F15.10 Other stimulant abuse, uncomplicated; E87.5 Hyperkalemia; E87.6 Hypokalemia; F43.10 Post-traumatic stress disorder, unspecified; E83.42 Hypomagnesemia; E83.51 Hypocalcemia; E11.22 Type 2 diabetes mellitus with diabetic chronic kidney disease; D69.6 Thrombocytopenia, unspecified
CPT/HCPCS: 36415; 71045; 71275; 74177; 74181; 76700; 80048; 80053; 80061; 80069; 80074; 80299; 80307; 80320; 80329; 81001; 82103; 82140; 82150; 82247; 82248; 82306; 82330; 82390; 82436; 82570; 82728; 82784; 82962; 83036; 83516; 83540; 83550; 83605; 83690; 83735; 83880; 83970; 84100; 84133; 84156; 84300; 84443; 84484; 84550; 85025; 85379; 85610; 86038; 87040; 87081; 87086; 87635; 93005; 96361; 96374; 96375; 99285; G0378; J0696; J1644; J1650; J1815; J2405; J3370; J3430; J7070; Q9967; G0480; J0360; J2270; J3475; J7030; J7040; J7050; Q0177

== ENCOUNTER 2020-12-06 06:04 | Emergency (ER) | payer MEDICAID ==
[~2020-12-06] VITALS: Ht 165.1 cm; Wt 76.3 kg
[~2020-12-06 06:04] MED LIST changes: +ACID1TAB7 PO; +ASPI-191 PO; +BENZ-17 PO; +CALC1TAB68 PO; +ERGO500017 PO; +INSU100I11 SQ-INSULIN; +LACT20SO13 PO; +LISI-167 PO; +METF500T17 PO; +RIFA550T4 PO
[2020-12-06 06:08] VITALS: BP 150/102
--- NOTE | 2020-12-06 06:24 | NUR ---
PT. TO ROOM FROM LOBBY; PT. GIVEN A GOWN AND REQUESTED PT. TO CHANGE INTO GOWN.
--- NOTE | 2020-12-06 06:47 | NUR ---
DR. BOSE WAS IN TO EVAL PT. AND DISCUSS POC FOR D/C.
--- NOTE | 2020-12-06 07:00 | NUR ---
REPORT TO LOPEZ LAWSON TO ASSUME CARE OF PT. POC DISCUSSED.
== END 2020-12-06 07:04 | disposition home or self-care (01) ==
LOC: ED 06:55
DX: K29.00 Acute gastritis without bleeding (principal); R11.0 Nausea; I10 Essential (primary) hypertension; E11.9 Type 2 diabetes mellitus without complications
CPT/HCPCS: 99283

== ENCOUNTER 2020-12-06 14:12 | Emergency (ER) | payer MEDICAID ==
[~2020-12-06] VITALS: Ht 165.1 cm; Wt 75.8 kg
[2020-12-06 14:15] VITALS: BP 146/100
--- NOTE | 2020-12-06 14:41 | NUR ---
Millie roche in [facility] - 12/06/20 at 1442 by [facility] buyer: pt from lobby to room 19
--- NOTE | 2020-12-06 14:42 | NUR ---
publicist: attempted to call pt from lobby to room, no answer
--- NOTE | 2020-12-06 14:48 | NUR ---
technician trainee: attempted to call pt from lobby to room. no answer in lobby
--- NOTE | 2020-12-06 14:54 | NUR ---
copy operator: attempted to call pt from lobby to room for eval. no answer in lobby. unable to locate pt in lobby
== END 2020-12-06 14:57 | disposition home or self-care (01) ==
LOC: ED 14:45
DX: R06.02 Shortness of breath (principal); R05 Cough; Z53.21 Procedure and treatment not carried out due to patient leaving prior to being seen by health care provider
CPT/HCPCS: 93005